=== PATIENT | female | born 1960 | race Caucasian/White ===

== ENCOUNTER 2017-12-14 15:45 | Emergency (ER) | payer BC, MEDICARE ==
[2017-12-14 15:51] VITALS: TEMP 98
--- NOTE | 2017-12-14 16:06 | ED ---
General Adult HPI - General Chief complaint: Chest Pain Stated complaint: Chest Pain Time Seen by Provider: 12/14/17 15:57 Source: patient, family, RN notes reviewed Mode of arrival: wheelchair Limitations: no limitations - History of Present Illness Initial comments: Patient is a pleasant 57-year-old female presenting to the emergency department complaining of chest discomfort. Onset of symptoms was just prior to arrival. Patient was standing in line with discomfort in her chest. Discomfort felt like indigestion. Discomfort is now near resolved and is only minimally tight. Patient had some mild dyspnea associated earlier. No nausea. No diaphoresis. No history of similar symptoms previously. There was some radiation up towards the neck. - Related Data Home Medications Medication Instructions Recorded Confirmed DULoxetine HCL [Cymbalta] 60 mg PO BID 12/14/17 12/14/17 Losartan Potassium 100 mg PO DAILY 12/14/17 12/14/17 buPROPion HCL [Wellbutrin SR] 150 mg PO DAILY 12/14/17 12/14/17 clonazePAM [KlonoPIN] 0.5 mg PO TID 12/14/17 12/14/17 Allergies Allergy/AdvReac Type Severity Reaction Status Date / Time Sulfa (Sulfonamide Allergy Unknown Unknown Verified 12/14/17 16:55 Antibiotics) Childhood Review of Systems ROS Statement: Those systems with pertinent positive or pertinent negative responses have been documented in the HPI. ROS Other: All systems not noted in ROS Statement are negative. Constitutional: Denies: fever Eyes: Denies: eye pain ENT: Denies: ear pain Respiratory: Denies: cough Cardiovascular: Reports: chest pain Endocrine: Denies: fatigue Gastrointestinal: Denies: abdominal pain Genitourinary: Denies: dysuria Musculoskeletal: Denies: arthralgia Skin: Denies: rash Neurological: Denies: weakness Past Medical History Past Medical History: Hypertension History of Any Multi-Drug Resistant Organisms: None Reported Past Surgical History: Back Surgery, Section Past Psychological History: Anxiety, Depression Smoking Status: Never smoker Past Alcohol Use History: None Reported Past Drug Use History: None Reported General Exam Limitations: no limitations General appearance: alert, in no apparent distress Head exam: Present: atraumatic Eye exam: Present: normal appearance, PERRL ENT exam: Present: normal oropharynx Neck exam: Present: normal inspection Respiratory exam: Present: normal lung sounds bilaterally Cardiovascular Exam: Present: regular rate, normal rhythm Expanded Peripheral pulses: 2+: Radial (R), Radial (L), Posterior Tibialis (R), Posterior Tibialis (L) GI/Abdominal exam: Present: soft. Absent: tenderness Extremities exam: Present: normal inspection. Absent: pedal edema, calf tenderness Neurological exam: Present: alert Psychiatric exam: Present: normal affect, normal mood Skin exam: Present: normal color Course Vital Signs 12/14/17 12/14/17 12/14/17 15:48 16:05 17:00 Temperature 98.0 F Pulse Rate 102 H 88 Respiratory 18 16 16 Rate Blood Pressure 141/90 171/80 O2 Sat by Pulse 99 97 Oximetry 12/14/17 18:00 Temperature Pulse Rate 75 Respiratory 16 Rate Blood Pressure 151/87 O2 Sat by Pulse 99 Oximetry EKG Findings - EKG Comments: EKG Findings:: Normal sinus rhythm 96. CT 150. QRS 82. QT 344. QTC 434. Normal axis. Normal QRS. No acute ST change. Medical Decision Making - Medical Decision Making Patient reevaluated and resting comfortably in bed. Patient updated on results. Patient recommended admission for cardiology evaluation and further testing and possible stress test versus other. Despite this patient refuses admission. Patient is made aware of concerns including the fact that heart attack has not been ruled out at this time. Patient is also made aware that heart attack could happen in the near future. Patient states she will have close follow-up with her doctor. Patient does demonstrate medical decision making. Patient refuses admission and will leave AGAINST MEDICAL ADVICE. - Lab Data Result diagrams: 12/14/17 16:00 12/14/17 16:00 Lab Results 12/14/17 12/14/17 12/14/17 Range/Units 16:00 16:00 16:00 WBC 7.9 (3.8-10.6) k/uL RBC 4.34 (3.80-5.40) m/uL Hgb 13.4 (11.4-16.0) gm/dL Hct 40.9 (34.0-46.0) % MCV 94.2 (80.0-100.0) fL MCH 30.9 (25.0-35.0) pg MCHC 32.8 (31.0-37.0) g/dL RDW 13.5 (11.5-15.5) % Plt Count 290 (150-450) k/uL Neutrophils % 72 % Lymphocytes % 18 % Monocytes % 4 % Eosinophils % 4 % Basophils % 1 % Neutrophils # 5.7 (1.3-7.7) k/uL Lymphocytes # 1.4 (1.0-4.8) k/uL Monocytes # 0.3 (0-1.0) k/uL Eosinophils # 0.3 (0-0.7) k/uL Basophils # 0.1 (0-0.2) k/uL PT (9.0-12.0) sec INR (<1.2) APTT (22.0-30.0) sec D-Dimer (<0.60) mg/L FEU Sodium 140 (137-145) mmol/L Potassium 4.4 (3.5-5.1) mmol/L Chloride 104 (98-107) mmol/L Carbon Dioxide 27 (22-30) mmol/L Anion Gap 9 mmol/L BUN 15 (7-17) mg/dL Creatinine 0.74 (0.52-1.04) mg/dL Est GFR (CKD-EPI)AfAm >90 (>60 ml/min/1.73 sqM) Est GFR (CKD-EPI)NonAf >90 (>60 ml/min/1.73 sqM) Glucose 98 (74-99) mg/dL Calcium 9.7 (8.4-10.2) mg/dL Magnesium 1.9 (1.6-2.3) mg/dL Total Bilirubin 0.3 (0.2-1.3) mg/dL AST 23 (14-36) U/L ALT 18 (9-52) U/L Alkaline Phosphatase 115 (38-126) U/L Total Creatine Kinase 85 (30-135) U/L CK-MB (CK-2) 0.8 (0.0-2.4) ng/mL CK-MB (CK-2) Rel Index 0.9 Troponin I <0.012 (0.000-0.034) ng/mL Total Protein 7.2 (6.3-8.2) g/dL Albumin 4.6 (3.5-5.0) g/dL 12/14/17 Range/Units 16:00 WBC (3.8-10.6) k/uL RBC (3.80-5.40) m/uL Hgb (11.4-16.0) gm/dL Hct (34.0-46.0) % MCV (80.0-100.0) fL MCH (25.0-35.0) pg MCHC (31.0-37.0) g/dL RDW (11.5-15.5) % Plt Count (150-450) k/uL Neutrophils % % Lymphocytes % % Monocytes % % Eosinophils % % Basophils % % Neutrophils # (1.3-7.7) k/uL Lymphocytes # (1.0-4.8) k/uL Monocytes # (0-1.0) k/uL Eosinophils # (0-0.7) k/uL Basophils # (0-0.2) k/uL PT 10.3 (9.0-12.0) sec INR 1.1 (<1.2) APTT 23.9 (22.0-30.0) sec D-Dimer 0.20 (<0.60) mg/L FEU Sodium (137-145) mmol/L Potassium (3.5-5.1) mmol/L Chloride (98-107) mmol/L Carbon Dioxide (22-30) mmol/L Anion Gap mmol/L BUN (7-17) mg/dL Creatinine (0.52-1.04) mg/dL Est GFR (CKD-EPI)AfAm (>60 ml/min/1.73 sqM) Est GFR (CKD-EPI)NonAf (>60 ml/min/1.73 sqM) Glucose (74-99) mg/dL Calcium (8.4-10.2) mg/dL Magnesium (1.6-2.3) mg/dL Total Bilirubin (0.2-1.3) mg/dL AST (14-36) U/L ALT (9-52) U/L Alkaline Phosphatase (38-126) U/L Total Creatine Kinase (30-135) U/L CK-MB (CK-2) (0.0-2.4) ng/mL CK-MB (CK-2) Rel Index Troponin I (0.000-0.034) ng/mL Total Protein (6.3-8.2) g/dL Albumin (3.5-5.0) g/dL - Radiology Data Radiology results: image reviewed (X-ray shows no acute process) Disposition Clinical Impression: Chest pain Disposition: Left Against Medical Advice Instructions: Chest Pain (ED) Additional Instructions: Please follow-up to primary care physician tomorrow. Please also follow-up with cardiology. Return for chest pain, difficulty breathing, sweating, nausea , worsening symptoms or any other concerns. Aspirin daily until further advised by your doctor. Is patient prescribed a controlled substance at d/c from ED?: No Referrals: Ethan Bob MD [Primary Care Provider] - 1-2 days Mee Gustafson MD [STAFF PHYSICIAN] - 1-2 days Time of Disposition: 18:10
[2017-12-14 16:07] VITALS: RESP 16
[2017-12-14] MEDS ORDERED: NITROGLYCERIN OINT 1 INCH/GM PACKET TOPICAL STA (16:13)
[2017-12-14] MEDS ORDERED: ASPIRIN 81 MG PO STA (16:13)
[2017-12-14 16:27] LABS: Basophils # (A) 0.1 k/uL (0-0.2); Basophils % (A) 1 %; Eosinophils # (A) 0.3 k/uL (0-0.7); Eosinophils % (A) 4 %; HCT 40.9 % (34.0-46.0); HGB 13.4 gm/dL (11.4-16.0); Lymphocytes # (A) 1.4 k/uL (1.0-4.8); Lymphocytes % (A) 18 %; MCH 30.9 pg (25.0-35.0); MCHC 32.8 g/dL (31.0-37.0); MCV 94.2 fL (80.0-100.0); Mean Platelet Volume 6.6; Monocytes # (A) 0.3 k/uL (0-1.0); Monocytes % (A) 4 %; Neutrophils # (A) 5.7 k/uL (1.3-7.7); Neutrophils % (A) 72 %; Platelet Count 290 k/uL (150-450); RBC 4.34 m/uL (3.80-5.40); RDW 13.5 % (11.5-15.5); WBC 7.9 k/uL (3.8-10.6)
--- NOTE | 2017-12-14 16:36 | XR ---
EXAMINATION TYPE: XR chest 2V DATE OF EXAM: 12/14/2017 COMPARISON: NONE HISTORY: Chest pain that radiates into the neck TECHNIQUE: Frontal and lateral views of the chest are obtained. FINDINGS: There is no focal air space opacity, pleural effusion, or pneumothorax seen. The cardiac silhouette size is within normal limits. The osseous structures are intact. IMPRESSION: No acute cardiopulmonary process.
[2017-12-14 16:41] LABS: ALT 18 U/L (9-52); AST 23 U/L (14-36); Albumin 4.6 g/dL (3.5-5.0); Alkaline Phosphatase 115 U/L (38-126); Anion Gap 9 mmol/L; Blood Urea Nitrogen 15 mg/dL (7-17); Calcium 9.7 mg/dL (8.4-10.2); Carbon Dioxide 27 mmol/L (22-30); Chloride 104 mmol/L (98-107); Glucose 98 mg/dL (74-99); Magnesium 1.9 mg/dL (1.6-2.3); Potassium 4.4 mmol/L (3.5-5.1); Sodium 140 mmol/L (137-145); Total Bilirubin 0.3 mg/dL (0.2-1.3); Total Protein 7.2 g/dL (6.3-8.2)
[2017-12-14 16:44] LABS: Creatine Kinase 85 U/L (30-135)
[2017-12-14 16:52] LABS: D-Dimer 0.2 mg/L FEU (<0.60); INR 1.1 (<1.2); Partial Thromboplastin Time 23.9 sec (22.0-30.0); Prothrombin Time 10.3 sec (9.0-12.0)
[2017-12-14 16:57] LABS: Creatine Kinase MB 0.8 ng/mL (0.0-2.4); Troponin I <0.012 ng/mL (0.000-0.034)
[2017-12-14 18:05] VITALS: BP 151/87; PULSE 75
== END 2017-12-14 18:20 | disposition left against medical advice (07) ==
LOC: EC 15:45
DX: R07.89 Other chest pain (principal); R06.00 Dyspnea, unspecified; I10 Essential (primary) hypertension; F32.9 Major depressive disorder, single episode, unspecified; F41.9 Anxiety disorder, unspecified; Z79.899 Other long term (current) drug therapy; Z88.2 Allergy status to sulfonamides
CPT/HCPCS: 36415; 71046; 80053; 82550; 82553; 83735; 84484; 85025; 85379; 85610; 85730; 93005; 99285